=== PATIENT | female | born 1970 ===

== ENCOUNTER 2018-09-01 15:47 | Emergency (ER) | payer BC ==
[2018-09-01 16:28] VITALS: BP 114/70
--- NOTE | 2018-09-01 16:58 | UC ---
UC General HPI - HPI Summary HPI Summary: pt tripped over her son and fell backwards injuring her R shoulder 3 days ago. c/o pain and difficulty with moving it. denies head injury and neck/back pain. - History of Current Complaint Chief Complaint: UCUpperExtremity Stated Complaint: S/P FALL RIGHT SHOULDER PAIN Time Seen by Provider: 09/01/18 16:51 Hx Obtained From: Patient Hx Last Menstrual Period: HYSTERECTOMY Onset/Duration: Sudden Onset Timing: Constant Pain Intensity: 4 Aggravating: movement - Allergy/Home Medications Allergies/Adverse Reactions: Allergies Allergy/AdvReac Type Severity Reaction Status Date / Time No Known Allergies Allergy Verified 03/11/13 22:08 Home Medications: Home Medications Acetaminophen [Tylenol] 325 mg PO ONCE 09/01/18 [History Confirmed 09/01/18] Apremilast [Otezla] 30 mg PO DAILY 09/01/18 [History Confirmed 09/01/18] PMH/Surg Hx/FS Hx/Imm Hx - Additional Past Medical History Additional PMH: psoriatic arthritis - Surgical History Surgical History: Yes Surgery Procedure, Year, and Place: HYSTERECTOMY, C SECTIONS - Social History Occupation: Employed Full-time Lives: With Family Alcohol Use: Rare Substance Use Type: None Smoking Status (MU): Never Smoked Tobacco Review of Systems All Other Systems Reviewed And Are Negative: Yes Constitutional: Positive: Negative Skin: Positive: Rash - psoriasis Eyes: Positive: Negative ENT: Positive: Negative Respiratory: Positive: Negative Cardiovascular: Positive: Negative Gastrointestinal: Positive: Negative Genitourinary: Positive: Negative Motor: Positive: Negative Neurovascular: Positive: Negative Musculoskeletal: Positive: Other: - R shoulder pain Neurological: Positive: Negative Psychological: Positive: Negative Physical Exam Triage Information Reviewed: Yes Appearance: Well-Appearing Vital Signs: Initial Vital Signs Temp 97.9 F 09/01/18 16:20 Pulse 78 09/01/18 16:20 Resp 17 09/01/18 16:20 BP 114/70 09/01/18 16:20 Pulse Ox 98 09/01/18 16:20 Vital Signs Reviewed: Yes Eyes: Positive: Conjunctiva Clear ENT: Positive: Normal ENT inspection Neck: Positive: Supple, Nontender, No Lymphadenopathy, Other: - c-spine non tender Respiratory: Positive: Lungs clear, Normal breath sounds Cardiovascular: Positive: RRR, No Murmur Abdomen Description: Positive: Nontender, No Organomegaly, Soft Bowel Sounds: Positive: Present Musculoskeletal: Positive: Other: - RUE: no gross deformity, swelling or discoloration. tender over anterior shoulder. limited active rom due to pain. passive rom limited on flexion and abduction due to pain. rest of arm is non tender and has full s/v/m function. Neurological: Positive: Alert Psychological: Positive: Age Appropriate Behavior Skin Exam: Normal Diagnostics - Radiology No standard instances Radiology Interpretation Completed By: Radiologist - R SHOULDER IMPRESSION: No fracture of the right shoulder is noted Course/Dx - Course Course Of Treatment: NO FX OR DISLOCATION, POSSIBLE ROTATOR CUFF INJURY. WILL SLING BECAUSE PT CRADLING HER ARM AND RFER TO ORTHOPEDICS. - Diagnoses Provider Diagnosis: Shoulder pain, right Discharge - Sign-Out/Discharge Documenting (check all that apply): Patient Departure All imaging exams completed and their final reports reviewed: Yes - Discharge Plan Condition: Stable Disposition: HOME Prescriptions: Naproxen [Naprosyn 500 mg tab] 500 mg PO BID 5 Days #10 tablet Patient Education Materials: Shoulder Pain (ED) Referrals: Mikey Cordova MD [Medical Doctor] - As Soon As Possible Additional Instructions: SLING DURING DAY FOR COMFORT, REMOVE AT BEDTIME. - Billing Disposition and Condition Condition: STABLE Disposition: Home
== END 2018-09-01 17:49 | disposition home or self-care (01) ==
LOC: UCCORT 15:47
DX: M25.511 Pain in right shoulder (principal); W03.XXXA Other fall on same level due to collision with another person, initial encounter; Y92.9 Unspecified place or not applicable
CPT/HCPCS: 99213; G0463